=== PATIENT | male | born 1960 | race Caucasian/White ===

== ENCOUNTER 2020-03-30 17:21 | Inpatient (IN) | payer BC ==
[~2020-03-30] VITALS: Ht 175.3 cm; Wt 63.7 kg
[2020-03-30] MEDS ORDERED: IV NORMAL SALINE 1000ML BAG 1,000 ML IV SCH (17:56)
[2020-03-30] MEDS ORDERED: MULTIVIT INFUSN,ADULT 4,VIT K 10 ML, THIAMINE INJ 100 MG, FOLIC ACID INJ 1 MG in IV NOR... IV ONE (18:00)
[2020-03-30 18:04] LABS: BILIRUBIN,URINE NEGATIVE (NEG); CLARITY,URINE CLEAR; COLOR,URINE YELLOW; NITRITE,URINE NEGATIVE (NEG); PROTEIN,URINE NEGATIVE (NEG-TRACE); UROBILINOGEN,URINE 0.2 mg/dL (0.2 mg/dL)
[2020-03-30 18:09] LABS: BACTERIA,URINE 0 /HPF (0-FEW); RBC,URINE 0 /HPF (0-2); WBC,URINE 0 /HPF (0-4)
[2020-03-30 18:11] LABS: BARBITURATES NEG (NEG); BENZODIAZEPINES NEG (NEG); CANNABINOIDS NEG (NEG); COCAINE NEG (NEG); METHADONE NEG (NEG); OPIATES NEG (NEG); PHENCYCLIDINE NEG (NEG)
[2020-03-30 18:12] LABS: AMPHETAMINE/METHAMPHETAMINE NEG (NEG)
--- NOTE | 2020-03-30 18:23 | EKG ---
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
[2020-03-30] MEDS ORDERED: diphenhydrAMINE 50 MG/ML VIAL IVP PRN (18:30)
--- NOTE | 2020-03-30 18:30 | PHYS DOC ---
General Adult EDM: Chief Complaint: WITHDRAWL HPI: HPI: Patient is a 60 year old male who presents with states he has been alcoholic for many years and he will withdraw and go to rehab and stay clean and then relapsed. He states this past time that he has relapsed has been for the last 2 years. He states that he drinks 9-12 beers a day plus vodka. He states he last drank today which was 2-3 beers. He states he only drank today because he was starting to withdraw and began having nausea, vomiting, anxiety and tremors. He states that he has a history of seizures with withdrawal. He denies any other past medical history. He denies any pain at this time. Patient denies SI, HI, hallucinations, abdominal pain, chest pain, shortness of air, cough, fever, body aches, dizziness, headache, vision changes, numbness or tingling. Review of Systems: Review of Systems: Constitutional: Denies fever or chills. [] Eyes: Denies change in visual acuity. [] HENT: Denies nasal congestion or sore throat. [] Respiratory: Denies cough or shortness of breath. [] Cardiovascular: Denies chest pain or edema. [] GI: Denies abdominal pain. + nausea, +vomiting, denies bloody stools or diarrhea. [] : Denies dysuria. [] Musculoskeletal: Denies back pain or joint pain. [] Integument: Denies rash. [] Neurologic: Denies headache, focal weakness or sensory changes. [] Endocrine: Denies polyuria or polydipsia. [] Lymphatic: Denies swollen glands. [] Psychiatric: Denies depression. + anxiety. + Alcohol intoxication. [] Heart Score: Risk Factors: Risk Factors: DM, Current or recent (<one month) smoker, HTN, HLP, family history of CAD, obesity. Risk Scores: Score 0 - 3: 2.5% MACE over next 6 weeks - Discharge Home Score 4 - 6: 20.3% MACE over next 6 weeks - Admit for Clinical Observation Score 7 - 10: 72.7% MACE over next 6 weeks - Early Invasive Strategies Current Medications: Current Medications Medications (Trade) Dose Ordered Sig/Martha Start Time Stop Time Status Last Admin Dose Admin Multivitamins 10 ml/Thiamine HCl 100 mg/Folic Acid 1 mg/Sodium Chloride 1,011.2 ml @ 1,000.088 mls/hr 1X ONCE 03/30/20 18:00 03/30/20 19:00 Ondansetron HCl (Zofran) 4 mg 1X ONCE 03/30/20 19:00 03/30/20 19:01 Sodium Chloride 1,000 ml @ 1,000 mls/hr Q1H 03/30/20 17:56 03/30/20 18:55 Allergies: Allergies: Allergies Coded Allergies Type Severity Reaction Last Updated Verified No Known Drug Allergies 03/30/20 No Physical Exam: PE: Constitutional: Well developed, well nourished, no acute distress, non-toxic appearance. [] HENT: Normocephalic, atraumatic, bilateral external ears normal, oropharynx moist, no oral exudates, nose normal. [] Eyes: PERRLA, EOMI, conjunctiva normal, no discharge. [] Neck: Normal range of motion, no tenderness, supple, no stridor. [] Cardiovascular:Heart rate tachy regular rhythm, no murmur [] Lungs & Thorax: Bilateral breath sounds clear to auscultation [] Abdomen: Bowel sounds normal, soft, no tenderness, no masses, no pulsatile masses. [] Skin: Warm, dry, no erythema, no rash. [] Back: No tenderness, no CVA tenderness. [] Extremities: No tenderness, no cyanosis, no clubbing, ROM intact, no edema. [] Neurologic: Alert and oriented X 3, normal motor function, normal sensory function, no focal deficits noted. [] Psychologic: Affect normal, judgement normal, mood normal. [] Current Patient Data: Labs: Laboratory Tests Test 03/30/20 17:38 Urine Collection Type Unknown Urine Color Yellow Urine Clarity Clear Urine pH 6.0 (<5.0-8.0) Urine Specific [place] <=1.005 (1.000-1.030) Urine Protein Negative mg/dL (NEG-TRACE) Urine Glucose (UA) Negative mg/dL (NEG) Urine Ketones (Stick) 15 mg/dL (NEG) Urine Blood Negative (NEG) Urine Nitrite Negative (NEG) Urine Bilirubin Negative (NEG) Urine Urobilinogen Dipstick 0.2 mg/dL (0.2 mg/dL) Urine Leukocyte Esterase Negative (NEG) Urine RBC 0 /HPF (0-2) Urine WBC 0 /HPF (0-4) Urine Bacteria 0 /HPF (0-FEW) Urine Opiates Screen Neg (NEG) Urine Methadone Screen Neg (NEG) Urine Barbiturates Neg (NEG) Urine Phencyclidine Screen Neg (NEG) Urine Amphetamine/Methamphetamine Neg (NEG) Urine Benzodiazepines Screen Neg (NEG) Urine Cocaine Screen Neg (NEG) Urine Cannabinoids Screen Neg (NEG) Urine Ethyl Alcohol Pos (NEG) EKG: EK and read by Dr Cunningham as Sinus Tachycardia and no STEMI[] Radiology/Procedures: Radiology/Procedures: [] Course & Med Decision Making: Course & Med Decision Making Pertinent Labs and Imaging studies reviewed. (See chart for details) See HPI. I have ordered seizure precautions for the patient. He is alert and oriented x4. Calm and cooperative. No tremors at this time. He states he does have some nausea. Speaks in full clear sentences. Ambulatory with a steady gait. Abdomen is soft and nontender. Skin pink warm and dry. Lungs are clear to auscultation all lobes. No extremity edema. I have spoken to Dr. Martinez for admission. Patient has received 1 L of normal saline, 1 banana bag and Zofran. [] Dragon Disclaimer: Dragon Disclaimer: This electronic medical record was generated, in whole or in part, using a voice recognition dictation system. Departure Departure Impression: Primary Impression: Alcohol abuse with withdrawal Disposition: 09 ADMITTED INPT THIS HOSP Admitting Physician: MARGARITA Condition: STABLE Referrals: SPENCER CAST MD (PCP) TIM FOSTER APRN Mar 30, 2020 18:30
[2020-03-30 18:39] LABS: BASO % 0 % (0-3); EOS % 0 % (0-3); HEMATOCRIT 43.3 % (39.0-53.0); HEMOGLOBIN 14.6 g/dL (13.0-17.5); LYMPH # 0.7 x10^3/uL (1.0-4.8); LYMPH % 12 % (24-48); MEAN CORPUSCULAR HEMOGLOBIN 33 pg (25-35); MEAN CORPUSCULAR HGB CONC 34 g/dL (31-37); MEAN CORPUSCULAR VOLUME 98 fL (79-100); MONO # 0.8 x10^3/uL (0.0-1.1); MONO % 14 % (0-9); NEUT # 4.2 x10^3/uL (1.8-7.7); NEUT % 74 % (31-73); PLATELET COUNT 133 x10^3/uL (140-400); RED CELL DISTRIBUTION WIDTH 12.5 % (11.5-14.5); WHITE BLOOD COUNT 5.7 x10^3/uL (4.0-11.0)
[2020-03-30 18:45] LABS: PROTHROMBIN TIME PATIENT 11.7 SEC (11.7-14.0)
[2020-03-30 18:46] LABS: CALCIUM 8.9 mg/dL (8.5-10.1); CREATININE 0.7 mg/dL (0.7-1.3); POTASSIUM 3.6 mmol/L (3.5-5.1)
[2020-03-30 18:49] LABS: ACETAMIN < 2.0 mcg/ml (10-30); ETHANOL 172 mg/dL (0-10); SALIC < 2.8 mg/dL (2.8-20.0)
[2020-03-30 18:51] LABS: DIRECT BILIRUBIN 0.2 mg/dL (0.0-0.2); MAGNESIUM 1.8 mg/dL (1.8-2.4); TOTAL BILIRUBIN 0.5 mg/dL (0.2-1.0); TOTAL PROTEIN 7.5 g/dL (6.4-8.2)
[2020-03-30] MEDS: cloNIDine HCL 0.1 MG TABLET PO PRN (18:58)
[2020-03-30] MEDS ORDERED: ONDANSETRON PF 4 MG/2 ML VIAL. IVP ONE (19:00)
--- NOTE | 2020-03-30 19:53 | HP ---
ADMIT DATE: 03/30/2020 CHIEF COMPLAINT: Alcohol withdrawal. HISTORY OF PRESENT ILLNESS: The patient is a pleasant 60-year-old male who presents with alcohol withdrawal. He is trying to quit, but seems to have withdrawal problems when he quits. Today, he went ahead and drank a couple of beers to calm things down. He has some associated nausea. It has been occurring for several days, describes the symptoms as very irritating. I discussed the case with ER physician. We are going to admit the patient for alcohol withdrawal protocol. PAST MEDICAL HISTORY: Alcoholism and left shoulder pain. ALLERGIES: None. FAMILY HISTORY: Diabetes. SOCIAL HISTORY: He drinks. He is . No smoking or drugs. MEDICATIONS: Reviewed, please refer to the MRAD. REVIEW OF SYSTEMS: GENERAL: No history of weight change, weakness or fevers. SKIN: No bruising, hair changes or rashes. EYES: No blurred, double or loss of vision. NOSE AND THROAT: No history of nosebleeds, hoarseness or sore throat. HEART: No history of palpitations, chest pain or shortness of breath on exertion. LUNGS: Denies cough, hemoptysis, wheezing or shortness of breath. GASTROINTESTINAL: Denies changes in appetite, nausea, vomiting, diarrhea or constipation. GENITOURINARY: No history of frequency, urgency, hesitancy or nocturia. NEUROLOGIC: He complains of shaking. PSYCHIATRIC: He complains of depression. ENDOCRINE: No history of heat or cold intolerance, polyuria or polydipsia. EXTREMITIES: Denies muscle weakness, joint pain, pain on walking or stiffness. PHYSICAL EXAMINATION: VITALS: Within normal limits and are stable. GENERAL: No apparent distress. Alert and oriented. HEENT: Normal cephalic atraumatic, external auditory canals are patent EYES: Extraocular muscles are intact, pupils are equally round and reactive to light and accommodation MUSCULOSKELETAL: Well developed, well nourished, good range of motion ENDOCRINE: No thyromegaly was palpated LYMPHATICS: No cervical chain or axillary nodes were noted HEMATOPOIETIC: No bruising NECK: Supple, no JVD, no thyromegaly was noted. LUNGS: Clear to auscultation in all lung awad without rhonchi or wheezing. HEART: RRR, S1, S2 present. Peripheral pulses intact, no obvious murmurs were noted. ABDOMEN: Soft, nontender. Positive bowel sounds no organomegaly, normal bowel sounds. EXTREMITIES: Without any cyanosis, clubbing, or edema. Pedal pulses intact, Homans sign is negative. NEUROLOGIC: He has got some tremors. PSYCHIATRIC: Normal affect, normal mood. Stable. SKIN: No ulcerations or rashes, good skin turgor, no jaundice. VASCULAR: Good capillary refill, neurovascular bundle appears to be intact. LABORATORY DATA: Hematology is normal other than a low platelet count of 133. Electrolytes basically normal other than a slightly high anion gap of 18, which I suspect is from the alcohol. INR is 0.9. Urinalysis negative. ASSESSMENT AND PLAN: Alcohol withdrawal. The patient will be admitted for alcohol withdrawal protocol, p.r.n. IV benzos, IV banana bag, IV vitamins, home meds, DVT prophylaxis. Full code. JAMES SUN DO DR: CRYSTAL/[email or web address] JOB#: [id number] / [id number]
[2020-03-30 21:00] VITALS: BP 118/72
[2020-03-30] MEDS ORDERED: ACETAMINOPHEN 325 MG TABLET. PO PRN (21:15)
--- NOTE | 2020-03-30 22:00 | NUR ---
The patient, CAR MILES, 60 y/o, M admitted by JAMES SUN III, DO, was given written information regarding hospital policies, unit procedures and contact persons. Valuables were checked and patient has cell phone, glasses, pants, underwear, and socks. Valuables sent home with . Patient has no health history and does not take any medications.
[2020-03-30 23:20] VITALS: BP 102/64
[2020-03-31 03:00] VITALS: BP 111/69
[2020-03-31] MEDS: cloNIDine HCL 0.1 MG TABLET PO PRN ×3 (06:01→21:50)
[2020-03-31 07:00] VITALS: BP 136/71
[2020-03-31] MEDS ORDERED: MULTIVIT INFUSN,ADULT 4,VIT K 10 ML, THIAMINE INJ 100 MG, FOLIC ACID INJ 1 MG in IV NOR... IV SCH (09:00)
--- NOTE | 2020-03-31 10:41 | PDOC ---
[employer] PROGRESS NOTE Date of Service DOS: DATE: 03/31/20 TIME: 10:37 Chief Complaint Chief Complaint Alcohol withdrawal History of Present Illness History of Present Illness 03/31/2020 Pt seen and examined Pleasantly confused ERNESTO RN ERNESTO Case management Vitals/I&O Vitals/I&O: Vital Signs Date Time Temp Pulse Resp B/P (MAP) Pulse Ox O2 Delivery O2 Flow Rate FiO2 03/31/20 09:10 61 136/71 03/31/20 08:00 Room Air 03/31/20 07:00 98.0 16 95 98.0 I & O 03/30/20 03/30/20 03/31/20 15:00 23:00 07:00 Intake Total 2000 ml 100 ml Output Total 400 ml Balance 2000 ml -300 ml Physical Exam General: Cooperative, No acute distress Heart: Regular rate, Normal S1, Normal S2, No murmurs Lungs: Clear Abdomen: Normal bowel sounds, No tenderness Extremities: No edema, Normal pulses, No tenderness/swelling Skin: No rashes, No breakdown, No significant lesion Labs Labs: Laboratory Tests Test 03/30/20 17:38 03/30/20 18:27 Urine Collection Type Unknown Urine Color Yellow Urine Clarity Clear Urine pH 6.0 (<5.0-8.0) Urine Specific [place] <=1.005 (1.000-1.030) Urine Protein Negative mg/dL (NEG-TRACE) Urine Glucose (UA) Negative mg/dL (NEG) Urine Ketones (Stick) 15 mg/dL (NEG) Urine Blood Negative (NEG) Urine Nitrite Negative (NEG) Urine Bilirubin Negative (NEG) Urine Urobilinogen Dipstick 0.2 mg/dL (0.2 mg/dL) Urine Leukocyte Esterase Negative (NEG) Urine RBC 0 /HPF (0-2) Urine WBC 0 /HPF (0-4) Urine Bacteria 0 /HPF (0-FEW) Urine Opiates Screen Neg (NEG) Urine Methadone Screen Neg (NEG) Urine Barbiturates Neg (NEG) Urine Phencyclidine Screen Neg (NEG) Urine Amphetamine/Methamphetamine Neg (NEG) Urine Benzodiazepines Screen Neg (NEG) Urine Cocaine Screen Neg (NEG) Urine Cannabinoids Screen Neg (NEG) Urine Ethyl Alcohol Pos (NEG) White Blood Count 5.7 x10^3/uL (4.0-11.0) Red Blood Count 4.40 x10^6/uL (4.30-5.70) Hemoglobin 14.6 g/dL (13.0-17.5) Hematocrit 43.3 % (39.0-53.0) Mean Corpuscular Volume 98 fL (79-100) Mean Corpuscular Hemoglobin 33 pg (25-35) Mean Corpuscular Hemoglobin Concent 34 g/dL (31-37) Red Cell Distribution Width 12.5 % (11.5-14.5) Platelet Count 133 x10^3/uL (140-400) Neutrophils (%) (Auto) 74 % (31-73) Lymphocytes (%) (Auto) 12 % (24-48) Monocytes (%) (Auto) 14 % (0-9) Eosinophils (%) (Auto) 0 % (0-3) Basophils (%) (Auto) 0 % (0-3) Neutrophils # (Auto) 4.2 x10^3/uL (1.8-7.7) Lymphocytes # (Auto) 0.7 x10^3/uL (1.0-4.8) Monocytes # (Auto) 0.8 x10^3/uL (0.0-1.1) Eosinophils # (Auto) 0.0 x10^3/uL (0.0-0.7) Basophils # (Auto) 0.0 x10^3/uL (0.0-0.2) Prothrombin Time 11.7 SEC (11.7-14.0) Prothromb Time International Ratio 0.9 (0.8-1.1) Sodium Level 136 mmol/L (136-145) Potassium Level 3.6 mmol/L (3.5-5.1) Chloride Level 96 mmol/L (98-107) Carbon Dioxide Level 22 mmol/L (21-32) Anion Gap 18 (6-14) Blood Urea Nitrogen 6 mg/dL (8-26) Creatinine 0.7 mg/dL (0.7-1.3) Estimated GFR (Cockcroft-Gault) 115.0 Glucose Level 145 mg/dL (70-99) Calcium Level 8.9 mg/dL (8.5-10.1) Magnesium Level 1.8 mg/dL (1.8-2.4) Total Bilirubin 0.5 mg/dL (0.2-1.0) Direct Bilirubin 0.2 mg/dL (0.0-0.2) Aspartate Amino Transf (AST/SGOT) 223 U/L (15-37) Alanine Aminotransferase (ALT/SGPT) 84 U/L (16-63) Alkaline Phosphatase 68 U/L (46-116) Troponin I Quantitative < 0.017 ng/mL (0.000-0.055) Total Protein 7.5 g/dL (6.4-8.2) Albumin 4.0 g/dL (3.4-5.0) Lipase 216 U/L (73-393) Salicylates Level < 2.8 mg/dL (2.8-20.0) Salicylate Last Dose Date Unk Salicylate Last Dose Time Unk Acetaminophen Level < 2.0 mcg/ml (10-30) Acetaminophen Last Dose Date Unk Acetaminophen Last Dose Time Unk Ethyl Alcohol Level 172 mg/dL (0-10) Review of Systems Review of Systems: No signs of digital clubbing, cyanosis, or SOB noted. Assessment and Plan Assessmemt and Plan Problems Medical Problems: (1) Alcohol abuse with withdrawal Status: Acute Plan: Alcohol withdrawal protocol prn IV benzos, IV banana bag, IV vitamins Home meds DVT prophylaxis Full code Cardiac monitoring Comment Review of Relevant I have reviewed the following items cecilio (where applicable) has been applied. Medications: Current Medications Medications (Trade) Dose Ordered Sig/Martha Route PRN Reason Start Time Stop Time Status Last Admin Dose Admin Sodium Chloride 1,000 ml @ 1,000 mls/hr Q1H IV 03/30/20 17:56 03/30/20 18:55 DC 03/30/20 18:33 Multivitamins 10 ml/Thiamine HCl 100 mg/Folic Acid 1 mg/Sodium Chloride 1,011.2 ml @ 1,000.088 mls/hr 1X ONCE IV 03/30/20 18:00 03/30/20 19:00 DC 03/30/20 18:34 Ondansetron HCl (Zofran) 4 mg 1X ONCE IVP 03/30/20 19:00 03/30/20 19:01 DC 03/30/20 18:59 Lorazepam (Ativan Inj) 2 mg PRN Q1HR PRN IV For CIWA 8-14 03/30/20 18:30 03/31/20 09:10 Diphenhydramine HCl (Benadryl) 25 mg PRN Q15MIN PRN IVP EPS symptoms 2'Haldol admin 03/30/20 18:30 03/30/20 19:00 Clonidine HCl (Catapres) 0.1 mg PRN Q1HR PRN PO SBP > 180 or DBP > 100, MRX3 03/30/20 18:30 03/31/20 09:10 Acetaminophen (Tylenol) 650 mg PRN Q6HRS PRN PO MILD PAIN / TEMP > 100.3'F 03/30/20 21:15 03/30/20 21:24 Multivitamins 10 ml/Thiamine HCl 100 mg/Folic Acid 1 mg/Sodium Chloride 1,011.2 ml @ 100 mls/ hr DAILY IV 03/31/20 09:00 03/31/20 19:07 03/31/20 09:09 Justifications for Admission Other Justification JAMES SUN III DO Mar 31, 2020 10:41
[2020-03-31 11:00] VITALS: BP 136/66
--- NOTE | 2020-03-31 12:16 | NUR ---
SS following for discharge planning. SS reviewed pt chart and discussed with pt RN. Pt is from home with spouse and is currently on room air. Pt has ETOH and on CIWA protocol. PAT team referral made for assessment and recommendations. SS will continue to follow for discharge planning.
[2020-03-31 15:00] VITALS: BP 130/74
--- NOTE | 2020-03-31 15:48 | NUR ---
SS following up with discharge planning. SS received contact from Virgilio with the PAT team. Pt provided with outpatient resources for [facility] for ETOH treatment. SS will continue to follow for discharge planning.
[2020-03-31 19:48] VITALS: BP 140/76
[2020-03-31 23:10] VITALS: BP 150/82
[2020-04-01] MEDS: cloNIDine HCL 0.1 MG TABLET PO PRN ×4 (00:23→11:16)
[2020-04-01 03:03] VITALS: BP 158/74
--- NOTE | 2020-04-01 04:00 | NUR ---
keshav mckay called at 2310, patient out of room and ambulating to [facility]. Patient stating "my sister is outside" attempting to leave. Patient was combative. Nurses were able to get patient back to his room safely. Security arrived and patient was calmed down and medications given. Keshav bashir called again at 0225 patient ambulating in hallway, stating "just let me out on the porch for a minute" re oriented patient, safely ambulated patient back to his room. Security arrived, medications given. nurse at bedside until patient calmed down, bed alarm on. call light in reach, q15 min checks initiated. bed alarm on. will continue to monitor.
[2020-04-01 07:00] VITALS: BP 144/79
[2020-04-01 07:35] LABS: BASO % 0 % (0-3); EOS # 0.1 x10^3/uL (0.0-0.7); EOS % 1 % (0-3); HEMATOCRIT 43.4 % (39.0-53.0); LYMPH # 1.2 x10^3/uL (1.0-4.8); LYMPH % 19 % (24-48); MEAN CORPUSCULAR HEMOGLOBIN 34 pg (25-35); MEAN CORPUSCULAR HGB CONC 35 g/dL (31-37); MEAN CORPUSCULAR VOLUME 100 fL (79-100); MONO # 0.8 x10^3/uL (0.0-1.1); MONO % 12 % (0-9); NEUT # 4.4 x10^3/uL (1.8-7.7); NEUT % 67 % (31-73); PLATELET COUNT 115 x10^3/uL (140-400); RED BLOOD COUNT 4.35 x10^6/uL (4.30-5.70); RED CELL DISTRIBUTION WIDTH 12.2 % (11.5-14.5); WHITE BLOOD COUNT 6.5 x10^3/uL (4.0-11.0)
[2020-04-01 08:01] LABS: CALCIUM 8.6 mg/dL (8.5-10.1); CREATININE 0.7 mg/dL (0.7-1.3); POTASSIUM 3.2 mmol/L (3.5-5.1)
[2020-04-01] MEDS: THIAMINE 100 MG TABLET. PO SCH (08:18)
[2020-04-01] MEDS: FOLIC ACID 1 MG TABLET. PO SCH (08:18)
[2020-04-01] MEDS: MULTIVITAMIN with MINERAL TABLET. PO SCH (08:18)
[2020-04-01] MEDS: HALOPERIDOL LACTATE 5 MG/ML VIAL. IVP PRN ×2 (08:18→16:19)
--- NOTE | 2020-04-01 10:27 | PDOC ---
[employer] PROGRESS NOTE Date of Service DOS: DATE: 04/01/20 TIME: 10:24 Chief Complaint Chief Complaint Alcohol withdrawal History of Present Illness History of Present Illness 04/01/2020 Pt seen and examined ERNESTO OROZCO case management 03/31/2020 Pt seen and examined Pleasantly confused ERNESTO OROZCO Case management Vitals/I&O Vitals/I&O: Vital Signs Date Time Temp Pulse Resp B/P (MAP) Pulse Ox O2 Delivery O2 Flow Rate FiO2 04/01/20 08:18 54 144/79 04/01/20 08:00 Room Air 04/01/20 07:00 97.6 22 98 97.6 I & O 03/31/20 03/31/20 04/01/20 14:59 22:59 06:59 Intake Total 118 ml 550 ml 0 ml Output Total 200 ml 1151 ml Balance -82 ml -601 ml 0 ml Physical Exam General: Cooperative, No acute distress Heart: Regular rate, Normal S1, Normal S2, No murmurs Lungs: Clear Abdomen: Normal bowel sounds, No tenderness Extremities: No edema, Normal pulses, No tenderness/swelling Skin: No rashes, No breakdown, No significant lesion Labs Labs: Laboratory Tests Test 04/01/20 06:15 White Blood Count 6.5 x10^3/uL (4.0-11.0) Red Blood Count 4.35 x10^6/uL (4.30-5.70) Hemoglobin 15.0 g/dL (13.0-17.5) Hematocrit 43.4 % (39.0-53.0) Mean Corpuscular Volume 100 fL (79-100) Mean Corpuscular Hemoglobin 34 pg (25-35) Mean Corpuscular Hemoglobin Concent 35 g/dL (31-37) Red Cell Distribution Width 12.2 % (11.5-14.5) Platelet Count 115 x10^3/uL (140-400) Neutrophils (%) (Auto) 67 % (31-73) Lymphocytes (%) (Auto) 19 % (24-48) Monocytes (%) (Auto) 12 % (0-9) Eosinophils (%) (Auto) 1 % (0-3) Basophils (%) (Auto) 0 % (0-3) Neutrophils # (Auto) 4.4 x10^3/uL (1.8-7.7) Lymphocytes # (Auto) 1.2 x10^3/uL (1.0-4.8) Monocytes # (Auto) 0.8 x10^3/uL (0.0-1.1) Eosinophils # (Auto) 0.1 x10^3/uL (0.0-0.7) Basophils # (Auto) 0.0 x10^3/uL (0.0-0.2) Sodium Level 142 mmol/L (136-145) Potassium Level 3.2 mmol/L (3.5-5.1) Chloride Level 102 mmol/L (98-107) Carbon Dioxide Level 28 mmol/L (21-32) Anion Gap 12 (6-14) Blood Urea Nitrogen 4 mg/dL (8-26) Creatinine 0.7 mg/dL (0.7-1.3) Estimated GFR (Cockcroft-Gault) 115.0 Glucose Level 102 mg/dL (70-99) Calcium Level 8.6 mg/dL (8.5-10.1) Review of Systems Review of Systems: No signs of digital clubbing, cyanosis, or SOB noted. Assessment and Plan Assessmemt and Plan Problems Medical Problems: (1) Alcohol abuse with withdrawal Status: Acute Plan: Add Haldol Replace potassium Continue other alcohol withdrawal protocol Hope to discharge to [facility] Home meds DVT prophylaxis Full code Cardiac monitoring Comment Review of Relevant I have reviewed the following items cecilio (where applicable) has been applied. Medications: Current Medications Medications (Trade) Dose Ordered Sig/Martha Route PRN Reason Start Time Stop Time Status Last Admin Dose Admin Multivitamins (Thera M Plus) 1 tab DAILY PO 04/01/20 09:00 04/01/20 08:18 Folic Acid (Folic Acid) 1 mg DAILY PO 04/01/20 09:00 04/01/20 08:18 Thiamine Mononitrate (Vitamin B-1) 100 mg DAILY PO 04/01/20 09:00 04/01/20 08:18 Lorazepam (Ativan Inj) 8 mg PRN Q1HR PRN IVP ANXIETY / AGITATION 04/01/20 03:00 04/01/20 03:16 Haloperidol Lactate (Haldol Inj) 5 mg PRN Q6HRS PRN IVP AGITATION- 2ND CHOICE 04/01/20 08:00 04/01/20 08:18 Justifications for Admission Other Justification JAMES SUN III DO Apr 01, 2020 10:27
[2020-04-01 10:28] VITALS: BP 125/73
--- NOTE | 2020-04-01 14:07 | NUR ---
SS following for discharge planning. SS reviewed pt chart and discussed with pt RN. Pt is currently on room air. Pt is still in withdrawals and CIWA protocol. Pt having tremors and visual hallucinations. SS will continue to follow for discharge planning.
[2020-04-01 14:44] VITALS: BP 129/82
[2020-04-01] MEDS ORDERED: POTASSIUM CHLORIDE 20 MEQ TABLET.ER. PO ONE (17:00)
[2020-04-01 18:16] VITALS: BP 137/74
[2020-04-01 22:05] VITALS: BP 146/70
[2020-04-02 02:31] VITALS: BP 105/67
[2020-04-02 06:08] LABS: BASO % 1 % (0-3); EOS # 0.1 x10^3/uL (0.0-0.7); EOS % 2 % (0-3); HEMATOCRIT 43.5 % (39.0-53.0); HEMOGLOBIN 14.9 g/dL (13.0-17.5); LYMPH # 0.9 x10^3/uL (1.0-4.8); LYMPH % 16 % (24-48); MEAN CORPUSCULAR HEMOGLOBIN 34 pg (25-35); MEAN CORPUSCULAR HGB CONC 34 g/dL (31-37); MEAN CORPUSCULAR VOLUME 100 fL (79-100); MONO # 0.7 x10^3/uL (0.0-1.1); MONO % 12 % (0-9); NEUT % 69 % (31-73); PLATELET COUNT 120 x10^3/uL (140-400); RED BLOOD COUNT 4.36 x10^6/uL (4.30-5.70); RED CELL DISTRIBUTION WIDTH 12.4 % (11.5-14.5); WHITE BLOOD COUNT 5.7 x10^3/uL (4.0-11.0)
[2020-04-02 06:23] LABS: CALCIUM 8.9 mg/dL (8.5-10.1); CREATININE 0.6 mg/dL (0.7-1.3); GFR 137.4; POTASSIUM 3.7 mmol/L (3.5-5.1)
[2020-04-02 07:00] VITALS: BP 171/88
[2020-04-02] MEDS: MULTIVITAMIN with MINERAL TABLET. PO SCH (08:48)
[2020-04-02] MEDS: FOLIC ACID 1 MG TABLET. PO SCH (08:48)
[2020-04-02] MEDS: THIAMINE 100 MG TABLET. PO SCH (08:48)
[2020-04-02 11:00] VITALS: BP 116/71
--- NOTE | 2020-04-02 12:36 | NUR ---
SS following up with discharge planning. SS reviewed pt chart and discussed with pt RN. Pt continuing to withdraw at this time. Pt is currently on room air. CIWA protocol. Pt still confused and shaky. Pt walked 200 feet x2 with PT. PT recommended alf unit and OT recommended home. Discharge plan is to home when medically ready. SS will continue to follow for discharge planning.
--- NOTE | 2020-04-02 14:38 | PDOC ---
[employer] PROGRESS NOTE Date of Service DOS: DATE: 04/02/20 TIME: 14:36 Chief Complaint Chief Complaint Alcohol withdrawal History of Present Illness History of Present Illness 04/02/2020 Patient seen and evaluated. Reportedly had some hallucinations yesterday. He is still tremulous and fairly confused upon my evaluation today. Not stable for discharge yet. Continue with alcohol withdrawal protocol. 04/01/2020 Pt seen and examined ERNESTO OROZCO case management 03/31/2020 Pt seen and examined Pleasantly confused ERNESTO OROZCO Case management Vitals/I&O Vitals/I&O: Vital Signs Date Time Temp Pulse Resp B/P (MAP) Pulse Ox O2 Delivery O2 Flow Rate FiO2 04/02/20 11:00 97.9 78 20 116/71 (86) 97 Room Air 97.9 I & O 04/01/20 04/01/20 04/02/20 15:00 23:00 07:00 Intake Total 120 ml 360 ml 380 ml Output Total 850 ml 300 ml Balance -730 ml 60 ml 380 ml Physical Exam General: Cooperative, No acute distress Heart: Regular rate, Normal S1, Normal S2, No murmurs Lungs: Clear Abdomen: Normal bowel sounds, No tenderness Extremities: No edema, Normal pulses, No tenderness/swelling Skin: No rashes, No breakdown, No significant lesion Labs Labs: Laboratory Tests Test 04/02/20 05:35 White Blood Count 5.7 x10^3/uL (4.0-11.0) Red Blood Count 4.36 x10^6/uL (4.30-5.70) Hemoglobin 14.9 g/dL (13.0-17.5) Hematocrit 43.5 % (39.0-53.0) Mean Corpuscular Volume 100 fL (79-100) Mean Corpuscular Hemoglobin 34 pg (25-35) Mean Corpuscular Hemoglobin Concent 34 g/dL (31-37) Red Cell Distribution Width 12.4 % (11.5-14.5) Platelet Count 120 x10^3/uL (140-400) Neutrophils (%) (Auto) 69 % (31-73) Lymphocytes (%) (Auto) 16 % (24-48) Monocytes (%) (Auto) 12 % (0-9) Eosinophils (%) (Auto) 2 % (0-3) Basophils (%) (Auto) 1 % (0-3) Neutrophils # (Auto) 4.0 x10^3/uL (1.8-7.7) Lymphocytes # (Auto) 0.9 x10^3/uL (1.0-4.8) Monocytes # (Auto) 0.7 x10^3/uL (0.0-1.1) Eosinophils # (Auto) 0.1 x10^3/uL (0.0-0.7) Basophils # (Auto) 0.0 x10^3/uL (0.0-0.2) Sodium Level 141 mmol/L (136-145) Potassium Level 3.7 mmol/L (3.5-5.1) Chloride Level 104 mmol/L (98-107) Carbon Dioxide Level 25 mmol/L (21-32) Anion Gap 12 (6-14) Blood Urea Nitrogen 4 mg/dL (8-26) Creatinine 0.6 mg/dL (0.7-1.3) Estimated GFR (Cockcroft-Gault) 137.4 Glucose Level 99 mg/dL (70-99) Calcium Level 8.9 mg/dL (8.5-10.1) Review of Systems Review of Systems: Denies fever, denies chest pain, denies nausea. Assessment and Plan Assessmemt and Plan Problems Medical Problems: (1) Alcohol abuse with withdrawal Status: Acute Comment Review of Relevant I have reviewed the following items cecilio (where applicable) has been applied. Medications: Current Medications Medications (Trade) Dose Ordered Sig/Martha Route PRN Reason Start Time Stop Time Status Last Admin Dose Admin Potassium Chloride (Klor-Con) 40 meq 1X ONCE PO 04/01/20 17:00 04/01/20 17:01 DC 04/01/20 17:37 Justifications for Admission Other Justification SUSI LOYOLA MD Apr 02, 2020 14:38
[2020-04-02 14:53] VITALS: BP 160/87
[2020-04-02 19:10] VITALS: BP 131/69
[2020-04-02 23:24] VITALS: BP 142/78
[2020-04-03 03:15] VITALS: BP 127/74
[2020-04-03 04:58] LABS: BASO % 0 % (0-3); EOS # 0.1 x10^3/uL (0.0-0.7); EOS % 1 % (0-3); HEMATOCRIT 45.7 % (39.0-53.0); HEMOGLOBIN 15.4 g/dL (13.0-17.5); LYMPH # 1.2 x10^3/uL (1.0-4.8); LYMPH % 20 % (24-48); MEAN CORPUSCULAR HEMOGLOBIN 34 pg (25-35); MEAN CORPUSCULAR HGB CONC 34 g/dL (31-37); MEAN CORPUSCULAR VOLUME 100 fL (79-100); MONO # 0.8 x10^3/uL (0.0-1.1); MONO % 14 % (0-9); NEUT # 3.8 x10^3/uL (1.8-7.7); NEUT % 64 % (31-73); PLATELET COUNT 135 x10^3/uL (140-400); RED BLOOD COUNT 4.58 x10^6/uL (4.30-5.70); RED CELL DISTRIBUTION WIDTH 12.3 % (11.5-14.5)
[2020-04-03 05:12] LABS: CALCIUM 8.8 mg/dL (8.5-10.1); CREATININE 0.6 mg/dL (0.7-1.3); GFR 137.4; POTASSIUM 3.3 mmol/L (3.5-5.1)
[2020-04-03 07:00] VITALS: BP 139/87
[2020-04-03] MEDS: FOLIC ACID 1 MG TABLET. PO SCH (08:37)
[2020-04-03] MEDS: THIAMINE 100 MG TABLET. PO SCH (08:37)
[2020-04-03] MEDS: MULTIVITAMIN with MINERAL TABLET. PO SCH (08:37)
--- NOTE | 2020-04-03 09:35 | PDOC ---
[employer] PROGRESS NOTE Date of Service DOS: DATE: 04/03/20 TIME: 09:34 Chief Complaint Chief Complaint Alcohol withdrawal History of Present Illness History of Present Illness 04/03/2020 Patient seen and evaluated. He is ANO x3 this morning. Tremors resolved. He feels comfortable discharging today. Discussed alcohol cessation, and recommended AA. 04/02/2020 Patient seen and evaluated. Reportedly had some hallucinations yesterday. He is still tremulous and fairly confused upon my evaluation today. Not stable for discharge yet. Continue with alcohol withdrawal protocol. 04/01/2020 Pt seen and examined ERNESTO RN ERNESTO case management 03/31/2020 Pt seen and examined Pleasantly confused ERNESTO RN ERNESTO Case management Vitals/I&O Vitals/I&O: Vital Signs Date Time Temp Pulse Resp B/P (MAP) Pulse Ox O2 Delivery O2 Flow Rate FiO2 04/03/20 07:35 Room Air 04/03/20 07:00 97.6 81 16 139/87 (104) 98 97.6 I & O 04/02/20 04/02/20 04/03/20 15:00 23:00 07:00 Intake Total 550 ml 200 ml 500 ml Output Total 400 ml 600 ml 300 ml Balance 150 ml -400 ml 200 ml Physical Exam General: Cooperative, No acute distress Heart: Regular rate, Normal S1, Normal S2, No murmurs Lungs: Clear Abdomen: Normal bowel sounds, No tenderness Extremities: No edema, Normal pulses, No tenderness/swelling Skin: No rashes, No breakdown, No significant lesion Labs Labs: Laboratory Tests Test 04/03/20 04:45 White Blood Count 6.0 x10^3/uL (4.0-11.0) Red Blood Count 4.58 x10^6/uL (4.30-5.70) Hemoglobin 15.4 g/dL (13.0-17.5) Hematocrit 45.7 % (39.0-53.0) Mean Corpuscular Volume 100 fL (79-100) Mean Corpuscular Hemoglobin 34 pg (25-35) Mean Corpuscular Hemoglobin Concent 34 g/dL (31-37) Red Cell Distribution Width 12.3 % (11.5-14.5) Platelet Count 135 x10^3/uL (140-400) Neutrophils (%) (Auto) 64 % (31-73) Lymphocytes (%) (Auto) 20 % (24-48) Monocytes (%) (Auto) 14 % (0-9) Eosinophils (%) (Auto) 1 % (0-3) Basophils (%) (Auto) 0 % (0-3) Neutrophils # (Auto) 3.8 x10^3/uL (1.8-7.7) Lymphocytes # (Auto) 1.2 x10^3/uL (1.0-4.8) Monocytes # (Auto) 0.8 x10^3/uL (0.0-1.1) Eosinophils # (Auto) 0.1 x10^3/uL (0.0-0.7) Basophils # (Auto) 0.0 x10^3/uL (0.0-0.2) Sodium Level 142 mmol/L (136-145) Potassium Level 3.3 mmol/L (3.5-5.1) Chloride Level 103 mmol/L (98-107) Carbon Dioxide Level 26 mmol/L (21-32) Anion Gap 13 (6-14) Blood Urea Nitrogen 7 mg/dL (8-26) Creatinine 0.6 mg/dL (0.7-1.3) Estimated GFR (Cockcroft-Gault) 137.4 Glucose Level 97 mg/dL (70-99) Calcium Level 8.8 mg/dL (8.5-10.1) Review of Systems Review of Systems: Denies fever, denies nausea, denies chest pain. Assessment and Plan Assessmemt and Plan Problems Medical Problems: (1) Alcohol abuse with withdrawal Status: Acute Comment Review of Relevant I have reviewed the following items cecilio (where applicable) has been applied. Justifications for Admission Other Justification SUSI LOYOLA MD Apr 03, 2020 09:35
[2020-04-03 11:00] VITALS: BP 123/95
--- NOTE | 2020-04-03 11:02 | PDOC3 ---
Discharge Summary Visit Information Date of Admission: Mar 30, 2020 Date of Discharge: Apr 03, 2020 Final Diagnosis Problems Medical Problems: (1) Alcohol abuse with withdrawal Status: Acute Brief Hospital Course Allergies Allergies Coded Allergies Type Severity Reaction Last Updated Verified No Known Drug Allergies 03/30/20 No Vital Signs Vital Signs Date Time Temp Pulse Resp B/P (MAP) Pulse Ox O2 Delivery O2 Flow Rate FiO2 04/03/20 07:35 Room Air 04/03/20 07:00 97.6 81 16 139/87 (104) 98 97.6 Lab Results Laboratory Tests Test 04/01/20 11:20 04/02/20 05:35 04/03/20 04:45 Coronavirus (PCR) Not detected (Not Detected) White Blood Count 5.7 x10^3/uL (4.0-11.0) 6.0 x10^3/uL (4.0-11.0) Red Blood Count 4.36 x10^6/uL (4.30-5.70) 4.58 x10^6/uL (4.30-5.70) Hemoglobin 14.9 g/dL (13.0-17.5) 15.4 g/dL (13.0-17.5) Hematocrit 43.5 % (39.0-53.0) 45.7 % (39.0-53.0) Mean Corpuscular Volume 100 fL (79-100) 100 fL (79-100) Mean Corpuscular Hemoglobin 34 pg (25-35) 34 pg (25-35) Mean Corpuscular Hemoglobin Concent 34 g/dL (31-37) 34 g/dL (31-37) Red Cell Distribution Width 12.4 % (11.5-14.5) 12.3 % (11.5-14.5) Platelet Count 120 x10^3/uL (140-400) 135 x10^3/uL (140-400) Neutrophils (%) (Auto) 69 % (31-73) 64 % (31-73) Lymphocytes (%) (Auto) 16 % (24-48) 20 % (24-48) Monocytes (%) (Auto) 12 % (0-9) 14 % (0-9) Eosinophils (%) (Auto) 2 % (0-3) 1 % (0-3) Basophils (%) (Auto) 1 % (0-3) 0 % (0-3) Neutrophils # (Auto) 4.0 x10^3/uL (1.8-7.7) 3.8 x10^3/uL (1.8-7.7) Lymphocytes # (Auto) 0.9 x10^3/uL (1.0-4.8) 1.2 x10^3/uL (1.0-4.8) Monocytes # (Auto) 0.7 x10^3/uL (0.0-1.1) 0.8 x10^3/uL (0.0-1.1) Eosinophils # (Auto) 0.1 x10^3/uL (0.0-0.7) 0.1 x10^3/uL (0.0-0.7) Basophils # (Auto) 0.0 x10^3/uL (0.0-0.2) 0.0 x10^3/uL (0.0-0.2) Sodium Level 141 mmol/L (136-145) 142 mmol/L (136-145) Potassium Level 3.7 mmol/L (3.5-5.1) 3.3 mmol/L (3.5-5.1) Chloride Level 104 mmol/L (98-107) 103 mmol/L (98-107) Carbon Dioxide Level 25 mmol/L (21-32) 26 mmol/L (21-32) Anion Gap 12 (6-14) 13 (6-14) Blood Urea Nitrogen 4 mg/dL (8-26) 7 mg/dL (8-26) Creatinine 0.6 mg/dL (0.7-1.3) 0.6 mg/dL (0.7-1.3) Estimated GFR (Cockcroft-Gault) 137.4 137.4 Glucose Level 99 mg/dL (70-99) 97 mg/dL (70-99) Calcium Level 8.9 mg/dL (8.5-10.1) 8.8 mg/dL (8.5-10.1) Laboratory Tests Test 04/03/20 04:45 White Blood Count 6.0 x10^3/uL (4.0-11.0) Red Blood Count 4.58 x10^6/uL (4.30-5.70) Hemoglobin 15.4 g/dL (13.0-17.5) Hematocrit 45.7 % (39.0-53.0) Mean Corpuscular Volume 100 fL (79-100) Mean Corpuscular Hemoglobin 34 pg (25-35) Mean Corpuscular Hemoglobin Concent 34 g/dL (31-37) Red Cell Distribution Width 12.3 % (11.5-14.5) Platelet Count 135 x10^3/uL (140-400) Neutrophils (%) (Auto) 64 % (31-73) Lymphocytes (%) (Auto) 20 % (24-48) Monocytes (%) (Auto) 14 % (0-9) Eosinophils (%) (Auto) 1 % (0-3) Basophils (%) (Auto) 0 % (0-3) Neutrophils # (Auto) 3.8 x10^3/uL (1.8-7.7) Lymphocytes # (Auto) 1.2 x10^3/uL (1.0-4.8) Monocytes # (Auto) 0.8 x10^3/uL (0.0-1.1) Eosinophils # (Auto) 0.1 x10^3/uL (0.0-0.7) Basophils # (Auto) 0.0 x10^3/uL (0.0-0.2) Sodium Level 142 mmol/L (136-145) Potassium Level 3.3 mmol/L (3.5-5.1) Chloride Level 103 mmol/L (98-107) Carbon Dioxide Level 26 mmol/L (21-32) Anion Gap 13 (6-14) Blood Urea Nitrogen 7 mg/dL (8-26) Creatinine 0.6 mg/dL (0.7-1.3) Estimated GFR (Cockcroft-Gault) 137.4 Glucose Level 97 mg/dL (70-99) Calcium Level 8.8 mg/dL (8.5-10.1) Brief Hospital Course Mr. Roblero is a 60 old male who presented with alcohol withdrawal. He was admitted and treated with thiamine, folic acid, multivitamins, and IV fluids. Monitor alcohol withdrawal protocol. Symptoms improved he was stable for discharge on 04/03/2020. Recommended AA. Discharge Information Condition at Discharge: Improved Disposition/Orders: D/C to Home No Active Prescriptions or Reported Meds Justicifation of Admission Dx: Justifications for Admission: Justification of Admission Dx: Yes (Alcohol withdrawal) SUSI LOYOLA MD Apr 03, 2020 11:02
[2020-04-03 15:00] VITALS: BP 126/81
--- NOTE | 2020-04-03 17:13 | NUR ---
Discharge Note: [facility] [address] Discharge instructions and discharge home medications reviewed with Patient and a copy given. No new medication. Pt reminded to call [facility] on Sunday to check on referral for outpatient treatment. All questions have been answered and understanding verbalized. The following instructions and handouts were given: malnutrition, ETOH and diet. Discontinued lines and drains: IV removed. Catheter intact. Bleeding stopped. Bandage Applied Patient discharged to Home or Self Care withSpousevia Wheelchair
== END 2020-04-03 16:45 | disposition home or self-care (01) | DRG 896 ==
LOC: ER 17:21 → 2 SOUTH 18:57
PROVIDERS: ADMIT Internal Medicine; ATTEND Internal Medicine
DX: F10.130 Alcohol abuse with withdrawal, uncomplicated (principal); G92 Toxic encephalopathy; F41.9 Anxiety disorder, unspecified; Z20.828 Contact with and (suspected) exposure to other viral communicable diseases; Y90.6 Blood alcohol level of 120-199 mg/100 ml; Z83.3 Family history of diabetes mellitus
CPT/HCPCS: 36415; 80048; 80076; 80307; 80329; 81001; 83690; 83735; 84484; 85025; 85610; 93005; 96365; 96375; G0480; J1200; J1630; J2060; J2405; J3411; J3490; J7030; U0003; 97116-GP; 97530-GO; 97530-GP; 97535-GO; 99285-25; G0378

== ENCOUNTER 2020-11-18 18:32 | Emergency (ER) | payer SELFPAY ==
[~2020-11-18] VITALS: Ht 175.3 cm; Wt 68.1 kg
[2020-11-18 19:28] VITALS: BP 139/86
[2020-11-18] MEDS ORDERED: LIDOCAINE 1%/EPI 1:100,000 20 ML VIAL. INJ ONE (20:00)
--- NOTE | 2020-11-18 20:00 | PHYS DOC ---
Past Medical History Past Medical History: No Pertinent History Past Surgical History: No Surgical History Smoking Status: Current Every Day Smoker Alcohol Use: Heavy General Adult EDM: Chief Complaint: INSECT BITE HPI: HPI: Patient is a 60 year old male presents with a chief complaint of insect bite. Patient's insect bite is located on his distal right inner thigh and has been present for 2 days progressive becoming worse. On exam right inner thigh has 2 cm central scab surrounded by visual pus and surrounding erythema that measures 10 x 10. Patient denies any fevers or chills. He has full range of motion of the right lower extremity. Discussed treatment plan of incision and drainage and discharge with prescription antibiotics--patient is agreeable with plan. Review of Systems: Review of Systems: Review of systems: Constitutional symptoms- No fever, no chills. Eyes- No Discharge, No Visual Loss Respiratory symptoms- No shortness of breath, No wheezing, No Dyspnea on Exertion Cardiovascular Systems; No chest pain, No Palpitations, No syncope Gastrointestinal symptoms: NO abdominal pain, no nausea, no vomiting or diarrhea. Genitourinary symptoms: No dysuria. Musculoskeletal symptoms: No back pain No extremity pain. NEUROLOGICAL Symptoms: No headache, no generalized weakness; No focal Weakness Skin-positive cellulitis positive abscess Heart Score: C/O Chest Pain: N/A Risk Factors: Risk Factors: DM, Current or recent (<one month) smoker, HTN, HLP, family history of CAD, obesity. Risk Scores: Score 0 - 3: 2.5% MACE over next 6 weeks - Discharge Home Score 4 - 6: 20.3% MACE over next 6 weeks - Admit for Clinical Observation Score 7 - 10: 72.7% MACE over next 6 weeks - Early Invasive Strategies Allergies: Allergies: Allergies Coded Allergies Type Severity Reaction Last Updated Verified No Known Drug Allergies 03/30/20 No Physical Exam: PE: Constitutional: Well developed, well nourished, no acute distress, non-toxic appearance. [] HENT: Normocephalic, atraumatic, bilateral external ears normal, oropharynx moist, no oral exudates, nose normal. [] Eyes: PERRLA, EOMI, conjunctiva normal, no discharge. [] Neck: Normal range of motion, no tenderness, supple, no stridor. [] Cardiovascular:Heart rate regular rhythm, no murmur [] Lungs & Thorax: Bilateral breath sounds clear to auscultation [] Abdomen: Bowel sounds normal, soft, no tenderness, no masses, no pulsatile masses. [] Skin: Warm, dry, no erythema, no rash. [] Back: No tenderness, no CVA tenderness. [] Extremities: No tenderness, no cyanosis, no clubbing, ROM intact, no edema. [] Neurologic: Alert and oriented X 3, normal motor function, normal sensory function, no focal deficits noted. [] Psychologic: Affect normal, judgement normal, mood normal. [] Current Patient Data: Vital Signs: Vital Signs Date Time Temp Pulse Resp B/P (MAP) Pulse Ox O2 Delivery O2 Flow Rate FiO2 11/18/20 19:28 98.5 115 20 139/86 (103) 96 Room Air 98.5 EKG: EKG: [] Radiology/Procedures: Radiology/Procedures: [] Course & Med Decision Making: Course & Med Decision Making Pertinent Labs and Imaging studies reviewed. (See chart for details) [] Procedure Lidocaine with epi used for local anesthesia approximately 5 cc used. Once successful anesthesia was achieved Betadine used to clean the area. 11 blade was used to put in an incision. Large amount of pus was expressed. Loculations broken up with Kellys. Wound was flushed with approximately 30 cc NS. Wound was packed with iodoform packing. In the ER treatment included Keflex and Bactrim. Patient was discharged home with Keflex and Bactrim. Advised to take Tylenol ibuprofen for pain. Advised that he can return to the ER in 48 hours for wound reevaluation and removal of packing or remove the iodoform packing himself. Patient and advised to return to the ER if redness pain swelling returns and present becomes worse. Dragon Disclaimer: Dragon Disclaimer: This electronic medical record was generated, in whole or in part, using a voice recognition dictation system. Departure Departure Impression: Primary Impression: Abscess Additional Impression: Brown recluse spider bite Disposition: 01 HOME / SELF CARE / HOMELESS Condition: STABLE Referrals: SPENCER CAST MD (PCP) Patient Instructions: Abscess, Brown Recluse Spider Bite Scripts Sulfamethoxazole/Trimethoprim (BACTRIM DS TABLET) 1 Each Tablet 1 TAB PO BID for 10 Days, #20 TAB 0 Refills Prov: SHANELL CARRIZALES DO 11/18/20 Cephalexin (CEPHALEXIN) 500 Mg Capsule 1 CAP PO QID, #40 CAP Prov: SHANELL CARRIZALES DO 11/18/20 SHANELL CARRIZALES DO Nov 18, 2020 20:00
[2020-11-18] MEDS ORDERED: SULF1TAB24 PO (20:44)
[2020-11-18] MEDS ORDERED: CEPH500C PO (20:44)
[2020-11-18] MEDS ORDERED: CEPHALEXIN 250 MG CAPSULE. PO ONE (20:45)
[2020-11-18] MEDS ORDERED: SMZ/TMP 800/160MG TABLET. PO ONE (20:45)
== END 2020-11-18 21:00 | disposition home or self-care (01) ==
LOC: ER 18:32
DX: T63.331A Toxic effect of venom of brown recluse spider, accidental (unintentional), initial encounter (principal); F17.200 Nicotine dependence, unspecified, uncomplicated; F10.20 Alcohol dependence, uncomplicated; Y90.9 Presence of alcohol in blood, level not specified; Y92.89 Other specified places as the place of occurrence of the external cause
CPT/HCPCS: 10060; 99283; J3490

== ENCOUNTER 2020-12-19 02:19 | Emergency (ER) | payer SELFPAY ==
[~2020-12-19] VITALS: Ht 175.3 cm; Wt 65.9 kg
[~2020-12-19 02:19] MED LIST: CEPH500C PO; SULF1TAB24 PO
[2020-12-19] MEDS ORDERED: KETOROLAC 15 MG/ML VIAL. IVP ONE (04:00)
[2020-12-19] MEDS ORDERED: IV NORMAL SALINE 1000ML BAG 1,000 ML IV ONE (04:00)
[2020-12-19] MEDS ORDERED: ONDANSETRON PF 4 MG/2 ML VIAL. ONE (04:11)
[2020-12-19 04:25] LABS: BASO % 0 % (0-3); EOS # 0.1 x10^3/uL (0.0-0.7); EOS % 2 % (0-3); HEMATOCRIT 45.8 % (39.0-53.0); HEMOGLOBIN 15.7 g/dL (13.0-17.5); LYMPH # 1.4 x10^3/uL (1.0-4.8); LYMPH % 26 % (24-48); MEAN CORPUSCULAR HEMOGLOBIN 33 pg (25-35); MEAN CORPUSCULAR HGB CONC 34 g/dL (31-37); MEAN CORPUSCULAR VOLUME 97 fL (79-100); MONO # 0.7 x10^3/uL (0.0-1.1); MONO % 13 % (0-9); NEUT % 58 % (31-73); PLATELET COUNT 147 x10^3/uL (140-400); RED BLOOD COUNT 4.71 x10^6/uL (4.30-5.70); RED CELL DISTRIBUTION WIDTH 12.7 % (11.5-14.5); WHITE BLOOD COUNT 5.2 x10^3/uL (4.0-11.0)
[2020-12-19 04:28] LABS: BILIRUBIN,URINE NEGATIVE (NEG); CLARITY,URINE CLEAR; COLOR,URINE YELLOW; NITRITE,URINE NEGATIVE (NEG); PROTEIN,URINE NEGATIVE (NEG-TRACE); UROBILINOGEN,URINE 0.2 mg/dL (0.2 mg/dL)
[2020-12-19] MEDS ORDERED: ONDANSETRON PF 4 MG/2 ML VIAL. IVP ONE (04:30)
[2020-12-19 04:38] LABS: BACTERIA,URINE 0 /HPF (0-FEW); RBC,URINE 0 /HPF (0-2); WBC,URINE 0 /HPF (0-4)
[2020-12-19 04:39] LABS: CALCIUM 9.5 mg/dL (8.5-10.1); CREATININE 0.8 mg/dL (0.7-1.3); GFR 98.6; POTASSIUM 3.3 mmol/L (3.5-5.1)
[2020-12-19 04:45] LABS: ALBUMIN 4.1 g/dL (3.4-5.0); TOTAL BILIRUBIN 0.8 mg/dL (0.2-1.0); TOTAL PROTEIN 8.1 g/dL (6.4-8.2)
[2020-12-19] MEDS ORDERED: CONTRAST GIVEN. MC PRN (05:00)
[2020-12-19] MEDS ORDERED: IOHEXOL 300 MG/ML 100ML VIAL. IV ONE (05:00)
[2020-12-19] MEDS ORDERED: IOHEXOL 240 MG/ML 50ML VIAL. PO ONE (05:00)
--- NOTE | 2020-12-19 06:04 | PHYS DOC ---
Past Medical History Past Medical History: No Pertinent History Additional Past Medical Histor: HERNIA (BROOKLYN HDEZ DO) Past Surgical History: No Surgical History (BROOKLYN HDEZ DO) Smoking Status: Current Every Day Smoker Alcohol Use: Heavy (BROOKLYN HDEZ DO) General Adult EDM: Chief Complaint: GROIN PAIN HPI: HPI: 60 yo M past medical history of tobacco dependence presents the ED with complaints of intermittent episodes of right inguinal pain that goes into his scrotum. Patient states pain worsens when he is standing upright, but improves when lying flat and pressing on the location of pain. Is tolerating oral intake and having normal routine bowel movements. Is currently asymptomatic in the ED. (BROOKLYN HDEZ DO) Review of Systems: Review of Systems: Constitutional: Denies fever or chills. [] Eyes: Denies change in visual acuity. [] HENT: Denies nasal congestion or sore throat. [] Respiratory: Denies cough or shortness of breath. [] Cardiovascular: Denies chest pain or edema. [] GI: Denies vomiting, bloody stools or diarrhea. [] : Denies dysuria or hematuria Musculoskeletal: Denies back pain or joint pain. [] Integument: Denies rash or diaphoresis Neurologic: Denies headache, focal weakness or sensory changes. [] Endocrine: Denies polyuria or polydipsia. [] Lymphatic: Denies swollen glands. [] Psychiatric: Denies depression or anxiety. [] (BROOKLYN HDEZ DO) Heart Score: C/O Chest Pain: No Risk Factors: Risk Factors: DM, Current or recent (<one month) smoker, HTN, HLP, family history of CAD, obesity. Risk Scores: Score 0 - 3: 2.5% MACE over next 6 weeks - Discharge Home Score 4 - 6: 20.3% MACE over next 6 weeks - Admit for Clinical Observation Score 7 - 10: 72.7% MACE over next 6 weeks - Early Invasive Strategies (BROOKLYN HDEZ DO) Current Medications: Current Medications Medications (Trade) Dose Ordered Sig/Martha Start Time Stop Time Status Last Admin Dose Admin Info (CONTRAST GIVEN -- Rx MONITORING) 1 each PRN DAILY PRN 12/19/20 05:00 12/21/20 04:59 Iohexol (Omnipaque 240 Mg/ml) 30 ml 1X ONCE 12/19/20 05:00 12/19/20 05:01 DC 12/19/20 05:45 30 ML Iohexol (Omnipaque 300 Mg/ml) 75 ml 1X ONCE 12/19/20 05:00 12/19/20 05:01 DC 12/19/20 05:45 75 ML Ketorolac Tromethamine (Toradol 15mg Vial) 15 mg 1X ONCE 12/19/20 04:00 12/19/20 04:01 DC 12/19/20 04:23 15 MG Ondansetron HCl (Zofran) 4 mg 1X ONCE 12/19/20 04:30 12/19/20 04:31 DC 12/19/20 04:22 4 MG Sodium Chloride 1,000 ml @ 1,000 mls/hr 1X ONCE 12/19/20 04:00 12/19/20 04:59 DC 12/19/20 04:22 1,000 MLS/HR (BROOKLYN HDEZ DO) Allergies: Allergies: Allergies Coded Allergies Type Severity Reaction Last Updated Verified No Known Drug Allergies 03/30/20 No (BROOKLYN HDEZ DO) Physical Exam: PE: Constitutional: Well developed, well nourished, no acute distress, non-toxic appearance. HENT: Normocephalic, atraumatic, Eyes: EOMI, conjunctiva normal, no discharge. Neck: Normal range of motion, supple, Cardiovascular: S1/2 present, regular rhythm Lungs & Thorax: Speaking in full sentences, bilateral equal chest rise, no tachypnea or increased work of breathing Abdomen: soft, no tenderness, Skin: Warm, dry, Extremities: No tenderness, no cyanosis, Neurologic: Alert and oriented X 3, no focal deficits noted. [] Psychologic: Affect normal, judgement normal, mood normal. [] : no rash, fullness in right inguinal ring and right scrotal sac- no pain with palpation and reduction though right inguinal ring (BROOKLYN HDEZ DO) PE: Constitutional: Well developed, well nourished, no acute distress, non-toxic appearance HENT: Normocephalic, atraumatic Eyes: Conjunctiva normal, no discharge Neck: Normal range of motion, supple Lungs & Thorax: No respiratory distress, equal chest rise and fall Abdomen: Soft, no tenderness, no guarding/rebound tenderness/distention Skin: Warm, dry, no erythema, no rash Extremities: No tenderness, ROM intact, no edema Neurologic: Alert and oriented X 3, no focal deficits noted Psychologic: Affect normal, judgment normal (CLAUDINE DEVRIES DO) Current Patient Data: Labs: Laboratory Tests Test 12/19/20 04:00 12/19/20 04:15 Urine Collection Type Unknown Urine Color Yellow Urine Clarity Clear Urine pH 6.0 (<5.0-8.0) Urine Specific [place] >=1.030 (1.000-1.030) Urine Protein Negative mg/dL (NEG-TRACE) Urine Glucose (UA) Negative mg/dL (NEG) Urine Ketones (Stick) Negative mg/dL (NEG) Urine Blood Negative (NEG) Urine Nitrite Negative (NEG) Urine Bilirubin Negative (NEG) Urine Urobilinogen Dipstick 0.2 mg/dL (0.2 mg/dL) Urine Leukocyte Esterase Negative (NEG) Urine RBC 0 /HPF (0-2) Urine WBC 0 /HPF (0-4) Urine Squamous Epithelial Cells Occ /LPF Urine Bacteria 0 /HPF (0-FEW) Urine Mucus Slight /LPF White Blood Count 5.2 x10^3/uL (4.0-11.0) Red Blood Count 4.71 x10^6/uL (4.30-5.70) Hemoglobin 15.7 g/dL (13.0-17.5) Hematocrit 45.8 % (39.0-53.0) Mean Corpuscular Volume 97 fL (79-100) Mean Corpuscular Hemoglobin 33 pg (25-35) Mean Corpuscular Hemoglobin Concent 34 g/dL (31-37) Red Cell Distribution Width 12.7 % (11.5-14.5) Platelet Count 147 x10^3/uL (140-400) Neutrophils (%) (Auto) 58 % (31-73) Lymphocytes (%) (Auto) 26 % (24-48) Monocytes (%) (Auto) 13 % (0-9) H Eosinophils (%) (Auto) 2 % (0-3) Basophils (%) (Auto) 0 % (0-3) Neutrophils # (Auto) 3.0 x10^3/uL (1.8-7.7) Lymphocytes # (Auto) 1.4 x10^3/uL (1.0-4.8) Monocytes # (Auto) 0.7 x10^3/uL (0.0-1.1) Eosinophils # (Auto) 0.1 x10^3/uL (0.0-0.7) Basophils # (Auto) 0.0 x10^3/uL (0.0-0.2) Sodium Level 137 mmol/L (136-145) Potassium Level 3.3 mmol/L (3.5-5.1) L Chloride Level 99 mmol/L (98-107) Carbon Dioxide Level 28 mmol/L (21-32) Anion Gap 10 (6-14) Blood Urea Nitrogen 3 mg/dL (8-26) L Creatinine 0.8 mg/dL (0.7-1.3) Estimated GFR (Cockcroft-Gault) 98.6 BUN/Creatinine Ratio 4 (6-20) L Glucose Level 112 mg/dL (70-99) H Lactic Acid Level 0.8 mmol/L (0.4-2.0) Calcium Level 9.5 mg/dL (8.5-10.1) Total Bilirubin 0.8 mg/dL (0.2-1.0) Aspartate Amino Transferase (AST) 168 U/L (15-37) H Alanine Aminotransferase (ALT) 129 U/L (16-63) H Alkaline Phosphatase 67 U/L (46-116) Total Protein 8.1 g/dL (6.4-8.2) Albumin 4.1 g/dL (3.4-5.0) Albumin/Globulin Ratio 1.0 (1.0-1.7) Laboratory Tests 12/19/20 04:15 Laboratory Tests 12/19/20 04:15 Vital Signs: Vital Signs Date Time Temp Pulse Resp B/P (MAP) Pulse Ox O2 Delivery O2 Flow Rate FiO2 12/19/20 03:48 75 137/79 (98) 98 Room Air 12/19/20 03:13 97.6 18 97.6 [facility] EKG: EKG: [] [facility]) Radiology/Procedures: Radiology/Procedures: [] ([facility]) Radiology/Procedures: PROCEDURE: CT ABD PELV W/ORAL&IV CONTRAST CT ABDOMEN+PELVIS W History: right inguinal/test pain, hernia Comparison: None. Technique: After administration of intravenous contrast, helical CT of the abdomen and pelvis was performed from the lung bases through the ischial tuberosities. Coronal and sagittal reconstructions were obtained. One or more of the following dose reduction techniques were utilized: Automated exposure control (AEC), Adjustment of mA and/or kV according to patient size, Use of iterative reconstruction technique such as ASiR, CT scan done according to ALARA and image gently/image wisely Abdomen Findings: The visualized lung bases are clear. The liver, gallbladder, pancreas, spleen, and bilateral adrenal glands are normal. Symmetric renal enhancement. There is no focal renal mass. There is no hydronephrosis. The visualized loops of small bowel are normal. Fluid throughout the colon. Mild colonic diverticulosis but There is no evidence of bowel obstruction. Appendix is normal. There is no free fluid. There is no mesenteric or retroperitoneal adenopathy. The abdominal aorta is normal in caliber. Pelvis Findings: Circumferential bladder wall thickening. No pelvic free fluid. There is no pelvic or inguinal adenopathy. There is no acute bony abnormality. Small fat-containing inguinal hernias. IMPRESSION: 1. Tiny inguinal hernias containing fat. 2. Circumferential bladder wall thickening, which may represent cystitis. Consider urinalysis. 3. Fluid throughout the colon, which can be seen with diarrhea. 4. Mild colonic diverticulosis. Electronically signed by: Micah Yu MD (12/19/2020 6:21 AM) [facility] (CLAUDINE DEVRIES DO) Course & Med Decision Making: Course & Med Decision Making Pertinent Labs and Imaging studies reviewed. (See chart for details) Concern for right inguinal hernia in a well-appearing male who reports "I can't pee," although has not drink much water. CT imaging pending. Urinalysis unremarkable for any infection. Due to shift change patient was signed out to oncoming physician Dr. Devries for further medical evaluation disposition. (BROOKLYN HDEZ DO) Course & Med Decision Making [id number]-signout received from Dr. Hdez for patient with concern for possible inguinal hernia on right side. Per Dr. Hdez she was able to reduce the hernia. Labs reviewed. CT abdomen/pelvis pending. Patient seen and evaluated by myself. CT notes bilateral fat-containing inguinal hernias. Patient reports interval improvement of his symptoms. Patient had previously received Zofran and ketorolac. Patient advised to use scrotal support as well as follow-up closely with the general surgeon for further evaluation and treatment as needed. Patient stable for discharge with outpatient follow-up with PCP/general surgery. General surgery referral provided. Discussed findings and plan with patient, who acknowledges understanding and agreement. (CLAUDINE DEVRIES DO) Dragon Disclaimer: Dragon Disclaimer: This electronic medical record was generated, in whole or in part, using a voice recognition dictation system. (BROOKLYN HDEZ DO) Departure Departure Impression: Primary Impression: Inguinal hernia Qualified Codes: K40.20 - Bilateral inguinal hernia, without obstruction or gangrene, not specified as recurrent Disposition: 01 HOME / SELF CARE / HOMELESS Condition: STABLE Referrals: SPENCER CAST MD (PCP) SHERRILL HAYS MD Patient Instructions: Hernia, [id number], Inguinal Hernia, Adult, Care After Additional Instructions: Use scrotal support. Use [id number] ibuprofen and or Tylenol for pain discomfort. Scripts Ondansetron (ONDANSETRON ODT) 4 Mg Tab.rapdis 1 TAB PO PRN Q6-8HRS PRN for NAUSEA, #16 TAB Prov: CLAUDINE DEVRIES DO 12/19/20 BROOK[place]N HDEZ DO Dec 19, 2020 06:04 CLAUDINE DEVRIES DO Dec 19, 2020 06:50
[2020-12-19 06:18] VITALS: BP 149/89
--- NOTE | 2020-12-19 06:23 | RAD ---
CT ABDOMEN+PELVIS W History: right inguinal/test pain, hernia Comparison: None. Technique: After administration of intravenous contrast, helical CT of the abdomen and pelvis was per formed from the lung bases through the ischial tuberosities. Coronal and sagittal reconstructions wer e obtained. One or more of the following dose reduction techniques were utilized: Automated exposure control (AEC), Adjustment of mA and/or kV according to patient size, Use of iterative reconstruction technique such as ASiR, CT scan done according to ALARA and image gently/image wisely Abdomen Findings: The visualized lung bases are clear. The liver, gallbladder, pancreas, spleen, and bilateral adrenal glands are normal. Symmetric renal enhancement. There is no focal renal mass. There is no hydronephrosis. The visualized loops of small bowel are normal. Fluid throughout the colon. Mild colonic diverticulos is but There is no evidence of bowel obstruction. Appendix is normal. There is no free fluid. There is no mesenteric or retroperitoneal adenopathy. The abdominal aorta is normal in caliber. Pelvis Findings: Circumferential bladder wall thickening. No pelvic free fluid. There is no pelvic or inguinal adenopa thy. There is no acute bony abnormality. Small fat-containing inguinal hernias. IMPRESSION: 1. Tiny inguinal hernias containing fat. 2. Circumferential bladder wall thickening, which may represent cystitis. Consider urinalysis. 3. Fluid throughout the colon, which can be seen with diarrhea. 4. Mild colonic diverticulosis. Electronically signed by: Micah Yu MD (12/19/2020 6:21 AM) [facility]
[2020-12-19] MEDS ORDERED: ONDA4TAB12 PO (06:48)
== END 2020-12-19 07:13 | disposition home or self-care (01) ==
LOC: ER 02:19
DX: K40.20 Bilateral inguinal hernia, without obstruction or gangrene, not specified as recurrent (principal); K57.30 Diverticulosis of large intestine without perforation or abscess without bleeding; F17.200 Nicotine dependence, unspecified, uncomplicated; F10.20 Alcohol dependence, uncomplicated; Y90.9 Presence of alcohol in blood, level not specified
CPT/HCPCS: 36415; 74177; 80053; 81001; 83605; 85025; 96361; 96374; 96375; 99285; J1885; J2405; J7030; Q9966; Q9967